=== PATIENT | male | born 1990 | race Caucasian/White ===

== ENCOUNTER 2017-06-29 15:31 | Emergency (ER) | payer BC ==
[2017-06-29 15:39] VITALS: BP 154/81
--- OUTSIDE RECORDS SUMMARY | 2017-06-29 16:23 | XMS REPORT | Clinical Summary ---
:1990 Author Organization [place] [address] Care Team Providers Name Role Phone Unavailable Primary Care Provider Unavailable Source Comments This disclosure is being made pursuant to the [employer] program and maynot contain all information available regarding this patient.[facility] Allergies Not on File Current Medications Be aware that medications may not be up to date as of this document. Alwaysverify current medications with the patient. Not on file Active Problems Not on file Social History Tobacco Use Types Packs/Day Years Used Date Never Assessed Sex Assigned at Date Recorded Not on file Last Filed Vital Signs Not on file Plan of Treatment Health Maintenance Due Date Last Done Comments HPV Vaccine ([id number],M: 9-22) (1 of 3 - Male 3 Dose 2003 Series) Retired-Tetanus Vaccine Adult 2011 Retired-INFLUENZA VACCINE 07/30/2015 Results Not on filefrom Last 3 Months
--- NOTE | 2017-06-29 16:45 | ERNOTE ---
Date of Service: 06/29/17 Time Seen by Provider: 06/29/17 16:13 Stated Complaint: CONGESTION, SORE THROAT Presenting Symptoms:: cough, sore throat, runny nose Source: patient, family, RN notes reviewed Exam Limitations: no limitations Immunizations: IMMUNIZATION HX Immunizations Up to Date Yes History of Influenza Vaccine No Hx Pneumococcal Vaccination No Allergies/Adverse Reactions: Allergies Penicillins Allergy (Unknown, Verified 06/29/17 15:40) Home Medications: HOME MEDICATIONS NK [No Home Medication] 12/06/15 [Last Taken Unknown] - History of Present Ilness Narrative: 27 y/o male ambulatory to the ED for URI symptoms that began 3 days ago. He denies any fever. He has not had any medication for his symptoms today. Date (Duration): 06/26/17 Frequency/Possible Cause: Reports: unknown cause Associated Symptoms: Reports: cough, nasal congestion, nasal drainage, headache , sore throat, muscle aches. Denies: chest pain/soreness, wheezing, facial pain , lightheadedness, earache, fever/chills Prior Treatment: Denies: recently seen Review of Systems - Review of Systems Constitutional: Present: See HPI EYE: Present: no symptoms reported ENT: Present: See HPI Respiratory: Present: See HPI Cardiology: Present: See HPI Gastrointestinal/Abdominal: Absent: vomiting, diarrhea, abdominal pain Genitourinary: Present: no symptoms reported Musculoskeletal: Present: muscle pain. Absent: joint pain, joint swelling Skin: Absent: rash, lesions, lumps Neurological: Present: See HPI Endocrine: Present: no symptoms reported Hematologic/Lymphatic: Present: no symptoms reported Psych: Present: no symptoms reported - Patient's Past Medical History Patient History - Medical: No pertinent hx Patient History - Cardiac/Respiratory: Hypertension Patient History - Cancer: No Hx of Cancer Patient History - Surgical Procedures: Other Patient History - Other: None - Social History Living Situations: home Abuse History: No History of abuse Psych History: No pertinent hx Smoking Status: Current every day smoker Cigarettes Packs Per Day: 0.5 Do you dip or chew tobacco: Yes Alcohol Use: occasionally Drug Use: none - Immunizations Immunizations Up to Date: Yes Hx Pneumococcal Vaccination: No History of Influenza Vaccine: No Physical Exam - Physical Exam General Appearance: Present: wd/wn, alert, no apparent distress Head Exam: Present: normal inspection Eye Exam: Normal inspection: bilateral Ears, Nose, Throat: Present: nasal congestion, pharyngeal erythema. Absent: abnormal TM (R), abnormal TM (L), sinus pain/drainage, pharyngeal swelling Neck: Present: normal inspection, nontender, supple. Absent: lymphadenopathy (R ), lymphadenopathy (L) Respiratory: Present: no respiratory distress, no accessory muscle use, expiration (prolonged), rhonchi - mild, scattered, wheezing Cardiovascular/Chest: Present: regular rate, rhythm, no murmur Extremity Exam: Present: normal inspection, normal range of motion Neurological Exam: Present: alert, oriented, normal mood/affect, no motor/ sensory deficits Skin Exam: Present: normal color, warm/dry ED Progress - Results and Orders Patient's Lab Results:: I have reviewed the patient's lab results. - Vital Signs Patient's Vital Signs:: I have reviewed the patient's vital signs. Vital Signs: Vital Signs 06/29/17 06/29/17 15:37 15:41 Temperature 37.0 C Pulse Rate 96 96 Respiratory 17 Rate Blood Pressure 154/81 O2 Sat by Pulse 99 Oximetry - Progress/Reassessment Chief Complaint: Upper Respiratory Symptoms Progress:: Unchanged Departure - Departure Clinical Impression: Upper respiratory infection, viral Disposition: Home self-care Condition: Stable Instructions: Upper Respiratory Infection, Adult, [id number], Form - Excuse from Work, School, or Physical Activity Additional Instructions: Drink plenty of water Use nasal saline spray for congestion Tylenol and/or ibuprofen for pain Robitussin DM for cough Stop smoking Follow up with your doctor if your symptoms have not improved in 1 week Referrals: Joanne Grant FNP [Primary Care Provider] -
== END 2017-06-29 16:51 | disposition home or self-care (01) ==
LOC: ER 15:31
DX: J06.9 Acute upper respiratory infection, unspecified (principal); B97.89 Other viral agents as the cause of diseases classified elsewhere; F17.210 Nicotine dependence, cigarettes, uncomplicated

== ENCOUNTER 2017-10-07 16:24 | Emergency (ER) | payer BC ==
[2017-10-07 16:35] VITALS: BP 138/78
[2017-10-07] MEDS ORDERED: ONDANSETRON 4 MG TAB.RAPDIS ONE (16:37)
[2017-10-07] MEDS ORDERED: ONDANSETRON 4 MG TAB.RAPDIS PO ONE (16:38)
--- NOTE | 2017-10-07 16:44 | ERNOTE ---
Medical Problem HPI - General Chief Complaint: Nausea/Vomiting Time Seen by Provider: 10/07/17 16:32 Source: patient Exam Limitations: no limitations - Immun/Allergies/Home Medications Immunizations: IMMUNIZATION HX Immunizations Up to Date Yes History of Influenza Vaccine No Hx Pneumococcal Vaccination No Allergies/Adverse Reactions: Allergies Penicillins Allergy (Unknown, Verified 10/07/17 16:35) Home Medications: HOME MEDICATIONS Ondansetron [Zofran Odt] 4 mg PO Q6H PRN #20 tab 10/07/17 [Last Taken Unknown] - History of Present History Narrative: Patient presents with 4 days of nausea and vomiting. Symptoms are intermittent in nature and appear to have improved some today. Still having difficulty eating complex foods. His fiance went through the same thing approximately a week prior and she is now on the mend. Timing: other - improving slowly Modifying Factors - (Improves): Present: other - time Review of Systems - Review of Systems Constitutional: Present: See HPI EYE: Present: no symptoms reported ENT: Present: no symptoms reported Respiratory: Present: no symptoms reported Cardiology: Present: no symptoms reported Gastrointestinal/Abdominal: Present: See HPI Genitourinary: Present: no symptoms reported Musculoskeletal: Present: no symptoms reported Skin: Present: no symptoms reported Neurological: Present: no symptoms reported Endocrine: Present: no symptoms reported Hematologic/Lymphatic: Present: no symptoms reported Psych: Present: no symptoms reported - Patient's Past Medical History Patient History - Medical: No pertinent hx Patient History - Cardiac/Respiratory: Hypertension Patient History - Cancer: No Hx of Cancer Patient History - Surgical Procedures: No surgical history Patient History - Other: None - Social History Living Situations: home Abuse History: No History of abuse Psych History: No pertinent hx Smoking Status: Current every day smoker Alcohol Use: occasionally Drug Use: none - Immunizations Immunizations Up to Date: Yes Hx Pneumococcal Vaccination: No History of Influenza Vaccine: No Physical Exam - Physical Exam General Appearance: Present: wd/wn, alert, no apparent distress Eye Exam: Normal inspection: bilateral, PERRL: bilateral Ears, Nose, Throat: Present: other - cobblestone pharynx Neck: Present: normal inspection, nontender Respiratory: Present: no respiratory distress, normal breath sounds, no accessory muscle use, chest nontender, lungs clear Cardiovascular/Chest: Present: regular rate, rhythm, no murmur, normal peripheral pulses Gastrointestinal/Abdominal: Present: normal bowel sounds, nontender, nondistended, soft, no organomegaly Rectal Exam: Present: deferred Back Exam: Present: normal inspection, normal range of motion Extremity Exam: Present: normal inspection, non-tender, no edema, normal range of motion Neurological Exam: Present: alert, oriented, normal mood/affect Skin Exam: Present: normal color, warm/dry Lymphatic Exam: Present: no adenopathy ED Progress - Vital Signs Patient's Vital Signs:: I have reviewed the patient's vital signs. Vital Signs: Vital Signs 10/07/17 16:32 Temperature 35.6 C L Pulse Rate 99 Respiratory 17 Rate Blood Pressure 138/78 O2 Sat by Pulse 100 Oximetry - Progress/Reassessment Chief Complaint: Nausea/Vomiting Plan - Plan Plan: Patient appears to have a viral infection that is resolving slowly. We'll start him on Zofran ODT, give him tomorrow off from work and see his family physician as needed. Departure Clinical Impression: Gastroenteritis - Departure Disposition: Home self-care Condition: Good Instructions: Viral Gastroenteritis, Adult, [id number] Referrals: Joanne Grant FNP [Primary Care Provider] - Prescriptions: Ondansetron [Zofran Odt] 4 mg PO Q6H PRN #20 tab PRN Reason: Nausea And Vomiting
== END 2017-10-07 16:44 | disposition home or self-care (01) ==
LOC: ER 16:24
DX: K52.9 Noninfective gastroenteritis and colitis, unspecified (principal); F17.200 Nicotine dependence, unspecified, uncomplicated

== ENCOUNTER 2017-12-30 06:47 | Day surgery (SDC) | payer BC ==
[~2017-12-30 06:47] MED LIST: ACETAMINOPHEN 500 MG TABLET PO PRN; HYDROmorphone HCL 2 MG/ML VIAL IV PRN; MAG HYDROX/ALUMINUM HYD/SIMETH 30 ML UDC PO PRN; MAGNESIUM HYDROXIDE 30 ML UDC PO PRN; ONDANSETRON HCL/PF 2 MG/ML VIAL IV PRN; PROMETHAZINE HCL 25 MG in DEXTROSE 5 % IN WATER 50 ML IV PRN; RINGER'S SOLUTION,LACTATED 1,000 ML IV PRN; ZOLPIDEM TARTRATE 5 MG TABLET PO PRN; diphenhydrAMINE HCL 50 MG/ML VIAL IV PRN
[2017-12-30] MEDS ORDERED: RINGER'S SOLUTION,LACTATED 1,000 ML IV ONE ×2 (07:14→09:05)
[2017-12-30] MEDS ORDERED: ceFAZolin SODIUM 1 GM VIAL IV ONE (08:00)
[2017-12-30] MEDS ORDERED: BUPIVACAINE HCL 50 ML VIAL IJ ONE (09:20)
--- NOTE | 2017-12-30 09:46 | OR ---
Operative Report - Dictated Report Narrative: Date: 12/30/2017 Physician: Luis M Lee M.D. General Agent: Wallace Stevenson PA-C Preoperative diagnosis: Right carpal tunnel syndrome, right cubital tunnel syndrome Postoperative diagnosis: Right carpal tunnel syndrome, right cubital tunnel syndrome Procedure: Right median nerve decompression at the carpal tunnel, right ulnar nerve decompression at the cubital tunnel Anesthesia: MAC Plus local Complications: None Estimated blood loss: Less than 25 mL Tourniquet time: 37 Minutes at 250 mmHg Specimens: None Retained implants: None Drains: None Indications: Ronny is a 27 year-old male who has been followed in my clinic with complaints of right carpal and cubital tunnel syndrome. Physical exam as well as diagnostic testing showed compression of the median nerve at the wrist compatible with carpal tunnel syndrome and ulnar nerve at the elbow compatible with cubital tunnel syndrome. Conservative measures have failed including but not limited to activity modification, medications, and splinting. The risks, benefits, and alternatives were discussed in clinic. The risks being bleeding, infection, nerve, tendon, blood vessel injury, persistent pain, wound competitions, weakness, palm pain, need for additional procedures, and persistent symptoms. Consent was obtained in the clinic. Procedure: After marking the correct extremity in the preoperative holding area, a timeout was performed in the operating room. IV antibiotics consisting of 2 g of Ancef were administered prior to the procedure. The patient was placed supine on the operating table with all bony prominences well-padded and the operative extremity on an arm board. The operative extremity was then prepped and draped in usual sterile fashion. A sterile tourniquet was applied to the operative upper arm. The arm was exsanguinated and the tourniquet was inflated to 250 mmHg. We first turned our attention to the wrist. 0.5% Marcaine without epinephrine was infused into the projected incision site. Using Loupe magnification, a longitudinal incision was made in line with the longitudinal hypothenar crease, or approximately in line with the ring finger, from just distal to the wrist flexion crease and extending approximately 2.5 cm distally. Blunt dissection and hemostasis with bipolar cautery was carried out throught the subcutaneous tissue and palmar fascia down to the level of the transverse carpal ligament. Ragnel retractors were used to retract the surrounding soft tissue and provide good visualization of the transverse carpal ligament. The transverse carpal ligament was then sharply incised longitudinally with a 15- blade scalpel. A [place] elevator was then slid underneath the transverse carpal ligament distally, protecting the median nerve, and the remaining distal portion of the transverse carpal ligament was sharply divided. This was then repeated proximally to divide the remaining proximal portion. Tenotomy scissors were used to divide any remaining transverse carpal ligament and palmar fascia distally being careful to avoid the superficial palmar arch. The distal forearm fascia was released ensuring that the median nerve was completely decompressed utilizing tenotomy scissors. The median nerve was then carefully inspected. Once it was felt that all the tissues overlying the median nerve were completely released, the wounds were thoroughly irrigated with saline and covered with a moist sponge. Attention was then turned to the elbow. 0.5% Marcaine without epinephrine was infused into the projected incision site over the medial elbow. Using loupe magnification, a longitudinal incision centered over the cubital tunnel was made approximately 7 centimeters in length. Blunt dissection was carried down to the subcutaneous tissues using bipolar cautery for hemostasis. Care was taken to protect the identified underlying cutaneous nerves. The ulnar nerve was identified as it passed through the medial intermuscular septum along the distal triceps. A release of the canal in this area as the ulnar nerve passed anterior to posterior was performed in order to decompress the nerve at this site. The nerve was dissected releasing the overlying soft tissues while maintaining the vascularity of the nerve down to the area of the medial epicondyles and Chahal's ligament. The nerve was completely decompressed as it passed posterior to the medial condyle and was followed into the flexor carpi ulnaris. The deep fascia of the flexor carpi ulnaris muscle was released in order to decompress the nerve at this site. The first branch of the ulnar nerve was protected as well as any identified recurrent branches. The elbow was placed through range of motion and it was noted that the nerve was not unstable nor did it appear to be under tension as it passed behind the medial epicondyle. For this reason it was not felt that a transposition was necessary. Once it was felt that we had completely released the compressive structures on the ulnar nerve, the wounds were thoroughly irrigated and the tourniquet was deflated. Hemostasis was obtained using pressure and bipolar cautery at both sites. Once adequate hemostasis was in place local anesthetic was placed in the skin edges, and the subcutaneous tissue of the elbow wound was closed with interrupted Vicryl. The skin of both the elbow and wrist incisions was closed with interrupted 4-0 nylon and sterile dressings consisting of Xeroform, 4 x 4, soft roll, a dorsal plaster wrist splint, and Jose Alejandro wrap was applied. All sponge, needle, blade, and instrument counts were correct prior to closing the wounds. The patient was awoken and transferred to the postanesthesia care unit in stable condition.
[2017-12-30] MEDS ORDERED: HYDROcodone/ACETAMINOPHEN 1 EACH TABLET PO PRN (09:55)
[2017-12-30 10:27] VITALS: BP 131/73
[2017-12-30] MEDS ORDERED: SENNOSIDES/DOCUSATE SODIUM 1 TAB TABLET PO SCH (21:00)
== END 2017-12-30 06:48 | disposition home or self-care (01) ==
LOC: AMB 06:47
PROVIDERS: ATTEND Orthopaedic Surgery
PROC: 01N43ZZ Release Ulnar Nerve, Percutaneous Approach (ICD-10-PCS; principal; 2017-12-30)
PROC: 01N50ZZ Release Median Nerve, Open Approach (ICD-10-PCS; 2017-12-30)
DX: G56.21 Lesion of ulnar nerve, right upper limb (principal); G56.01 Carpal tunnel syndrome, right upper limb; I10 Essential (primary) hypertension; J45.909 Unspecified asthma, uncomplicated; Z79.899 Other long term (current) drug therapy